=== PATIENT | male | born 1980 | race Caucasian/White ===

== ENCOUNTER 2018-03-29 11:33 | Emergency (ER) | payer MEDICAID ==
[~2018-03-29] VITALS: Ht 172.7 cm; Wt 113.6 kg
[2018-03-29] MEDS ORDERED: PHEN51CR RC (12:51)
[2018-03-29] MEDS ORDERED: LIDOCAINE HCL 1% 10 ML VIAL INJ ONE (14:45)
[2018-03-29 15:22] VITALS: BP 147/91
== END 2018-03-29 15:43 | disposition home or self-care (01) ==
LOC: EMS 11:34
DX: K61.1 Rectal abscess (principal)
CPT/HCPCS: 46040; 99284; J3490; 10060; 99283

== ENCOUNTER 2022-05-25 13:14 | Emergency (ER) | payer MEDICAID ==
[~2022-05-25] VITALS: Ht 162.6 cm; Wt 113.6 kg
[~2022-05-25 13:14] MED LIST: PHEN51CR17 RC
[2022-05-25] MEDS ORDERED: INSU100V SQ (13:24)
[2022-05-25] MEDS ORDERED: ACETAMINOPHEN 500 MG TABLET PO ONE (14:00)
[2022-05-25 14:06] LABS: GLUCOSE,POINT OF CARE 317 MG/DL (70-110)
[2022-05-25 16:46] VITALS: BP 140/88
[2022-05-25] MEDS ORDERED: VALA100026 PO (17:15)
[2022-05-25] MEDS ORDERED: PRED-554 PO (17:15)
== END 2022-05-25 18:09 | disposition home or self-care (01) ==
LOC: EMS 13:14
DX: G51.0 Bell's palsy (principal); E11.9 Type 2 diabetes mellitus without complications; I10 Essential (primary) hypertension
CPT/HCPCS: 70450; 82948; 82962; 99285